=== PATIENT | female | born 1945 | race Caucasian/White ===

== ENCOUNTER 2016-06-24 18:10 | Emergency (ER) | payer OTHER ==
--- NOTE | 2016-06-24 19:46 | EDPHY ---
H & P Time Seen by Provider: 06/24/16 19:41 HPI/ROS: CHIEF COMPLAINT: Lightheadedness HISTORY OF PRESENT ILLNESS: The patient is a 70 y/o female, with a history of CLL, arriving with her complaining of acute onset lightheadedness. She was sitting at the dining table, when she began to feel lightheaded. She states the sensation is "not spinning," but made her feel like she might pass out. Her symptoms were aggravated significantly by movement. She had associated nausea that has improved slightly while lying still. She denies associated diaphoresis , headache, tunnel vision, chest pain, weakness, paresthesias, or dyspnea. She has a prior history of vertigo and states this feels different because she does not have "room-spinning" dizziness now. Her symptoms have almost completely resolved upon assessment. No other associated sx. She felt normal upon waking this morning and denies recent illness or trauma. REVIEW OF SYSTEMS: Constitutional: No fever, no chills Eyes: No visual changes ENT: No sore throat Respiratory: No cough, no shortness of breath Cardiac: No chest pain Gastrointestinal: see HPI Genitourinary: No hematuria, no dysuria Musculoskeletal: No leg pain or swelling Skin: No rash Neurological: No headache, no numbness, no weakness Psychiatric: No depression Past Medical/Surgical History: PMH includes: 1. CLL 2. Hypercholesteremia - simvastatin 4. Hypothyroidism - Synthroid Social History: at bedside. Nonsmoker. No recent alcohol use. PCP: Dr. Linda Coburn. Smoking Status: Never smoked Physical Exam: General Appearance: Alert, pleasant Eyes: Pupils equal and round, no conjunctival pallor or injection, no nystagmus ENT, Mouth: Mucous membranes moist Neck: Normal inspection Respiratory: Lungs are clear to auscultation Cardiovascular: Regular rate and rhythm Gastrointestinal: Abdomen is soft and non- tender Neurological: A&O, CN II-XII intact, motor/sensory intact Skin: Warm and dry, no rash Extremities: Nontender, no pedal edema Psychiatric: Mood and affect normal Constitutional: Initial Vital Signs Temperature (C) 36.4 C 06/24/16 18:20 O2 Delivery Mode Room Air Allergies/Adverse Reactions: No Known Allergies Allergy (Unverified 06/24/16 18:24) Home Medications: Medication Instructions Recorded Hydrochlorothiazide [HCTZ (*)] 25 mg PO DAILY 06/24/16 Levothyroxine [Synthroid 88 mcg 88 mcg PO 06/24/16 (*)] Simvastatin [Zocor] 20 mg PO 06/24/16 Medical Decision Making - Diagnostics EKG Interpretation: The 12 lead EKG was interpreted by myself. Sinus rhythm rate 74, no ST/T changes. See hard copy and/or "tracemaster" electronic copy for interpretation. Imaging: Discussed imaging studies w/ crystal machining coordinator Radiologist ED Course/Re-evaluation: This is a healthy 70 y/o female who presents following acute onset lightheadedness while sitting this evening. She denies "room-spinning dizziness " or preceding symptoms. Her symptoms are aggravated by movement, making it more likely this is a vertigo presentation. Neurlogic exam is normal and I do not suspect CVA/TIA. stat EKG shows sinus rhythm without dysrhythmia or ischemic changes. Troponin is negative. WBC elevated, consistent with CLL diagnosis. Reassessed patient and discussed work up. She is feeling asymptomatic at this time. I've recommended following up with her PCP for recurrent symptoms. Return precautions given. She is comfortable with this plan. Unclear etiology of sx, though no concerning signs/sx for acute neuro/ cardiac etiology and I feel that she is safe/stable for d/c. Differential Diagnosis: includes though not limited to vertigo, dysrhythmia, hypoglycemia, ACS, CVA/TIA. - Data Points Laboratory Results: Laboratory Results 06/24/16 20:13 06/24/16 20:13 Medications Given: Discontinued Medications Sodium Chloride (Ns) 1,000 mls @ 0 mls/hr IV ONCE ONE PRN Reason: Wide Open Stop: 06/24/16 19:53 Last Admin: 06/24/16 20:13 Dose: 1,000 mls Departure - Departure Disposition: Home, Routine, Self-Care Clinical Impression: Lightheadedness Condition: Good Instructions: Lightheadedness (ED) Additional Instructions: Follow up with your primary care provider on Tuesday for unimproved symptoms. Return to the ED for recurrent symptoms, severe headache, weakness or numbness on one side of your body, or other worsening of condition. Referrals: Linda Feliciano MD [Primary Care Provider] - As per Instructions Report Scribed for: Anai Cueto Report Scribed by: Rosario Sahu Date of Report: 06/24/16 Time of Report: 19:51 Physician Review and Approval Statement: 06/24/16 19:46 Portions of this note were transcribed by a medical insurance coding specialist. I personally performed a history, physical exam, medical decision making, and confirmed accuracy of information the transcribed note.
[2016-06-24] MEDS ORDERED: NS 1,000 ML IV ONE (19:52)
--- NOTE | 2016-06-24 20:04 | CPEKG ---
Heart Rate: 74 RR Interval: 811 P-R Interval: 140 QRSD Interval: 96 QT Interval: 408 QTC Interval: 453 P [place]: 84 QRS [place]: 70 T Wave [place]: 69 EKG Severity - BORDERLINE ECG - EKG Impression: SINUS RHYTHM EKG Impression: PROBABLE RIGHT ATRIAL ENLARGEMENT Electronically Signed By: Curt Mccabe 25-Jun-2016 12:14:28
[2016-06-24 20:46] LABS: ANION GAP 9 mEq/L (8-16); CARBON DIOXIDE 26 mEq/l (22-31); CHLORIDE 98 mEq/L (97-110); CREATININE 0.6 mg/dL (0.6-1.0); GLOMERULAR FILTRATION RATE > 60; GLUCOSE 108 mg/dL (70-100); POTASSIUM 3.8 mEq/L (3.5-5.2); SODIUM 133 mEq/L (134-144)
[2016-06-24 20:53] LABS: % IMMATURE GRANULYOCYTES 0.3 % (0.0-1.1); ABSOLUTE IMMATURE GRANULOCYTES 0.06 10^3/uL (0.00-0.10); ADD DIFF? NO; ADD MORPH? NO; ADD SCAN? NO; ATYPICAL LYMPHOCYTE FLAG 0 (0-99); FRAGMENT RBC FLAG 0 (0-99); HEMATOCRIT 43.2 % (38.0-47.0); HEMOGLOBIN 14.8 g/dL (12.6-16.3); LEFT SHIFT FLG 0 (0-99); LIPEMIA HEMOLYSIS FLAG 90 (0-99); MEAN CELL HEMOGLOBIN 30.5 pg (27.9-34.1); MEAN CELL HEMOGLOBIN CONCENTR. 34.3 g/dL (32.4-36.7); MEAN CELL VOLUME 89.1 fL (81.5-99.8); MEAN PLATELET VOLUME 10.9 fL (8.7-11.7); PLATELET CLUMPS FLAG 0 (0-99); PLATELET COUNT 188 10^3/uL (150-400); RED BLOOD CELL COUNT 4.85 10^6/uL (4.18-5.33)
[2016-06-24 20:56] LABS: TROPONIN I < 0.012 ng/mL (0-0.034)
[2016-06-24 21:32] VITALS: BP 130/70; TEMP 98.1; O2SAT 94
[2016-06-24 21:41] VITALS: PULSE 82; RESP 16
== END 2016-06-24 21:43 | disposition home or self-care (01) ==
DX: R42 Dizziness and giddiness (principal)

== ENCOUNTER → 2017-01-31 | Outpatient (CLI) | payer OTHER | LOC: FIMAGING 11:27 | PROVIDERS: ATTEND Internal Medicine | DX: Z12.31 Encounter for screening mammogram for malignant neoplasm of breast (principal); Z85.3 Personal history of malignant neoplasm of breast | CPT/HCPCS: G0202 ==

== ENCOUNTER → 2018-02-03 | Outpatient (CLI) | payer OTHER | LOC: FIMAGING 14:40 | PROVIDERS: ATTEND Internal Medicine | DX: Z12.31 Encounter for screening mammogram for malignant neoplasm of breast (principal) ==